=== PATIENT | female | born 1960 | race Caucasian/White ===

== ENCOUNTER 2017-07-20 13:32 | Outpatient (CLI) | payer MEDICAID ==
[~2017-07-20 13:32] MED LIST: METH-360 PO
[2017-07-20 13:33] VITALS: BP 151/87
== END 2017-07-20 14:25 | disposition home or self-care (01) ==
LOC: ORTHO 13:32
PROVIDERS: ATTEND Nurse Practitioner Family
DX: S42.022A Displaced fracture of shaft of left clavicle, initial encounter for closed fracture (principal); V80.010A Animal-rider injured by fall from or being thrown from horse in noncollision accident, initial encounter; Y92.89 Other specified places as the place of occurrence of the external cause
CPT/HCPCS: 99211

== ENCOUNTER 2017-08-24 14:20 | Outpatient (CLI) | payer MEDICAID ==
[2017-08-24 14:20] VITALS: BP 137/90
== END 2017-08-24 14:55 | disposition home or self-care (01) ==
LOC: ORTHO 14:20
PROVIDERS: ATTEND Nurse Practitioner Family
DX: S42.022G Displaced fracture of shaft of left clavicle, subsequent encounter for fracture with delayed healing (principal); F17.210 Nicotine dependence, cigarettes, uncomplicated; X58.XXXD Exposure to other specified factors, subsequent encounter
CPT/HCPCS: 73000

== ENCOUNTER → 2017-09-21 | Outpatient (CLI) | payer MEDICAID ==
[2017-09-21 14:34] VITALS: BP 137/100
== END ==
LOC: ORTHO 14:35
PROVIDERS: ATTEND Nurse Practitioner Family
DX: S42.025A Nondisplaced fracture of shaft of left clavicle, initial encounter for closed fracture (principal); F17.210 Nicotine dependence, cigarettes, uncomplicated; I10 Essential (primary) hypertension; X58.XXXA Exposure to other specified factors, initial encounter; Y93.89 Activity, other specified; Y92.89 Other specified places as the place of occurrence of the external cause; Y99.8 Other external cause status
CPT/HCPCS: 73000

== ENCOUNTER 2018-04-05 10:34 | Emergency (ER) | payer MEDICAID ==
[~2018-04-05] VITALS: Ht 167.6 cm; Wt 52.0 kg
[2018-04-05 10:57] VITALS: BP 133/88
[2018-04-05] MEDS ORDERED: TETanus/Pertussis (Acell)/Diphther VAC/PF (Tdap-Adult) 0.5ml syringe IM ONE (11:20)
[2018-04-05] MEDS ORDERED: BUPIVAcaine/PF 2.5 mg/ml (0.25%) 30ml vial IJ ONE (11:20)
== END 2018-04-05 12:09 | disposition left against medical advice (07) ==
LOC: ER 10:34
DX: S81.811A Laceration without foreign body, right lower leg, initial encounter (principal); W20.8XXA Other cause of strike by thrown, projected or falling object, initial encounter; Y93.89 Activity, other specified; Y92.89 Other specified places as the place of occurrence of the external cause; Y99.9 Unspecified external cause status
CPT/HCPCS: 99281; A6449; 90715